=== PATIENT | female | born 1990 | race African-American/Black ===

== ENCOUNTER 2018-11-14 16:15 | Emergency (ER) | payer SELFPAY ==
[2018-11-14] MEDS ORDERED: METOCLOPRAMIDE 10 MG/2mL INJ ONE (17:35)
[2018-11-14] MEDS ORDERED: dexAMETHasone 10 MG/ML VIAL ONE (17:35)
[2018-11-14] MEDS ORDERED: KETOROLAC 30 MG/ML INJ ONE (17:35)
[2018-11-14] MEDS ORDERED: DIPHENHYDRAMINE 50 MG/ML VIAL ONE (17:35)
[2018-11-14] MEDS ORDERED: ONDANSETRON 4 MG/2 ML VIAL ONE (17:35)
[2018-11-14] MEDS ORDERED: NA CHLORIDE 0.9% 1,000 ML ONE (17:36)
[2018-11-14 18:09] LABS: Urine Blood NEGATIVE (NEG); Urine Glucose NEGATIVE (NEG); Urine Protein NEGATIVE (NEG)
[2018-11-14 18:19] LABS: Absolute Lymphocytes (CBC) 2.4 K/uL (0.7-4.9); Basophils % 0.7 % (0-1.3); Hematocrit 40.3 % (36.0-45.0); Lymphocytes % 27.2 % (15.3-44.8); MPV 8.5 fL (7.6-11.3); RBC Red Blood Cell Count 4.43 M/uL (3.86-4.86)
[2018-11-14] MEDS ORDERED: DIPHENHYDRAMINE 25 MG TAB/CAP ONE (18:27)
[2018-11-14 18:34] LABS: BUN Blood Urea Nitrogen 6 mg/dL (7-18); Bicarbonate 26 mmol/L (21-32); Glucose Level 78 mg/dL (74-106); Potassium 3.9 mmol/L (3.5-5.1); Sodium Level 142 mmol/L (136-145)
--- NOTE | 2018-11-14 19:47 | EDPHYS ---
Physician Documentation [facility] Name: Desirae Taylor Age: 28 yrs Sex: Female : 1990 Arrival Date: 11/14/2018 Time: 16:17 Bed 19 Private MD: ED Physician Kan Goetz HPI: 11/14 17:35 This 28 yrs old Black Female presents to ER via Ambulatory with complaints of Headache. cp 17:35 The patient complains of pain to the left base of the skull and right base of the cp skull. Onset: The symptoms/episode began/occurred this morning. 17:35 The patient describes the headache as aching. cp 17:35 Associated signs and symptoms: Pertinent negatives: altered mental status, dizziness, cp fever, neck stiffness, paresthesias, Photophobia sinus congestion, sinus tenderness, vision changes, vomiting. Severity of symptoms: in the emergency department the pain a " 8" out of "10". 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 - Social history:: Smoking status: Patient/guardian denies using tobacco. - Ebola Screening: : No symptoms or risks identified at this time. ROS: 17:40 Constitutional: Negative for body aches, chills, fever, poor PO intake. cp 17:40 Eyes: Negative for injury, pain, redness, and discharge. cp 17:40 ENT: Negative for drainage from ear(s), ear pain, sore throat, difficulty swallowing, difficulty handling secretions. 17:40 Neck: Negative for pain with movement, pain at rest, stiffness, tenderness. 17:40 Cardiovascular: Negative for chest pain. 17:40 Respiratory: Negative for cough, shortness of breath, wheezing. 17:40 Abdomen/GI: Negative for abdominal pain, nausea, vomiting, and diarrhea, constipation, black/tarry stool, rectal bleeding. 17:40 Back: Negative for pain at rest, pain with movement. 17:40 : Negative for urinary symptoms. 17:40 Neuro: Positive for headache, Negative for altered mental status, dizziness, numbness, weakness. 17:40 All other systems are negative. Exam: 17:50 Constitutional: The patient appears in no acute distress, alert, awake, non-toxic, well cp developed, well nourished. 17:50 Head/Face: Normocephalic, atraumatic. cp 17:50 Eyes: Periorbital structures: appear normal, Pupils: equal, round, and reactive to light and accomodation, Extraocular movements: intact throughout, Conjunctiva: normal, no exudate, no injection, Sclera: no appreciated abnormality, Lids and lashes: appear normal. 17:50 ENT: External ear(s): are unremarkable, Ear canal(s): are normal, clear, TM's: bulging, is not appreciated, bilaterally, dullness, bilaterally, erythema, is not appreciated, bilaterally, Nose: is normal, Mouth: Lips: moist, Oral mucosa: pink and intact, moist, Posterior pharynx: is normal, airway is patent. 17:50 Neck: ROM/movement: is normal, is supple, without pain, no range of motions limitations, no meningismus, no nuchal rigidity. 17:50 Chest/axilla: Inspection: normal, Palpation: is normal, no crepitus, no tenderness. 17:50 Cardiovascular: Rate: normal, Rhythm: regular. 17:50 Respiratory: the patient does not display signs of respiratory distress, Respirations: normal, no use of accessory muscles, no retractions, no splinting, no tachypnea, labored breathing, is not present. 17:50 Abdomen/GI: Inspection: abdomen appears normal, Palpation: abdomen is soft and non-tender, in all quadrants. 17:50 Skin: no rash present. 17:50 Neuro: Orientation: to person, place \\T\\ time. Mentation: is normal, Cerebellar function: is grossly normal, Motor: moves all fours, strength is normal, Sensation: is normal. Vital Signs: 16:42 BP 131 / 72; Pulse 76; Resp 16; Temp 98.4; Pulse Ox 100% on R/A; Weight 116.57 kg; hb Height 5 ft. 4 in. (162.56 cm); Pain 8/10; 19:15 BP 119 / 88; Pulse 74; Resp 17; Temp 98.8; Pulse Ox 100% on R/A; Pain 1/10; rr5 20:00 BP 120 / 88; Pulse 70; Resp 17; Pulse Ox 99% on R/A; rr5 16:42 Body Mass Index 44.11 (116.57 kg, 162.56 cm) hb MDM: 16:52 Patient medically screened. cp 18:00 Differential diagnosis: meningitis, migraine, sinusitis, tension headache. cp 19:45 Data reviewed: vital signs, nurses notes, and as a result, I will discharge patient. cp 19:45 Counseling: I had a detailed discussion with the patient and/or guardian regarding: the cp historical points, exam findings, and any diagnostic results supporting the discharge/admit diagnosis, to return to the emergency department if symptoms worsen or persist or if there are any questions or concerns that arise at home. Response to treatment: the patient's symptoms have markedly improved after treatment, VSS. Patient reports headache markedly improved. 11/14 17:33 Order name: CBC with Diff cp 11/14 17:33 Order name: BMP cp 11/14 18:01 Order name: Urine Dipstick--Ancillary (enter results) eb 11/14 18:01 Order name: Urine --Ancillary (enter results) eb 11/14 17:31 Order name: Urine Dipstick-Ancillary (obtain specimen); Complete Time: 18:09 cp 11/14 17:31 Order name: Urine Test (obtain specimen); Complete Time: 18:09 cp Administered Medications: 18:29 Not Given (Other Intervention Used): TORadol - Ketorolac 15 mg IVP once em 18:29 Not Given (Physician Discretion): NS 0.9% 1000 ml IV at 1 bolus Per protocol; 1000 mL em bolus 18:29 Not Given (Other Intervention Used): Benadryl 25 mg IVP once em 18:30 Not Given (Other Intervention Used): Decadron - Dexamethasone 10 mg IVP once em 18:30 Not Given (Patient Refused): Zofran 4 mg IVP once; over 2 minutes em 18:30 Not Given (Other Intervention Used): Reglan 10 mg IVP once; over 1 to 2 minutes em 18:31 Drug: Benadryl 25 mg Route: PO; em 19:35 Follow up: Response: No adverse reaction rr5 18:31 Drug: Ketorolac 15 mg Route: IM; Site: left gluteus; em 19:35 Follow up: Response: No adverse reaction rr5 18:32 Drug: Decadron 10 mg Route: IM; Site: left gluteus; em 19:35 Follow up: Response: No adverse reaction rr5 18:32 Drug: Reglan 10 mg Route: IM; Site: left gluteus; em 19:30 Follow up: Response: No adverse reaction rr5 Disposition: 11/14/18 19:46 Discharged to Home. Impression: Headache. - Condition is Stable. - Discharge Instructions: General Headache Without Cause. - Prescriptions for Ibuprofen 800 mg Oral Tablet - take 1 tablet by ORAL route every 8 hours As needed take with food; 30 tablet. - Medication Reconciliation Form, Thank You Letter, Antibiotic Education, Prescription Opioid Use, Work release form form. - Follow up: Private Physician; When: 2 - 3 days; Reason: Recheck today's complaints. - Problem is new. - Symptoms have improved. Addendum: 11/17/2018 09:06 Co-signature as Attending Physician, Kan Goetz MD I agree with the assessment and k dr plan of care. Signatures: Dispatcher [employer] EDNE Kan Goetz MD MD [facility] Chris Ambrose, CURRICULUM CONSULTANT CURRICULUM CONSULTANT em John Delatorre PA PA cp Fiordaliza Cordova RN RN Augustine Up RN RN rr5 Corrections: (The following items were deleted from the chart) 11/14 18:51 17:31 IV Saline Lock ordered. cp em 20:02 19:46 11/14/2018 19:46 Discharged to Home. Impression: Headache. Condition is Stable. rr5 Forms are Medication Reconciliation Form, Thank You Letter, Antibiotic Education, Prescription Opioid Use. Follow up: Private Physician; When: 2 - 3 days; Reason: Recheck today's complaints. Problem is new. Symptoms have improved. cp
--- NOTE | 2018-11-14 19:47 | ER ---
Nurse's Notes [facility] Name: Desirae Taylor Age: 28 yrs Sex: Female : 1990 Arrival Date: 11/14/2018 Time: 16:17 Bed 19 Private MD: Diagnosis: Headache Presentation: 11/14 16:40 Presenting complaint: Posterior headache since this morning. Denies hb photosensitivity/N/V/fever/headaceh hx. Transition of care: patient was not received from another setting of care. Onset of symptoms was November 14, 2018. Risk Assessment: Do you want to hurt yourself or someone else? Patient reports no desire to harm self or others. Care prior to arrival: Medication(s) given: BC Powder at 0700, Aleve at 1100, Motrin at 1300. 16:40 Method Of Arrival: Ambulatory hb 16:40 Acuity: LIZ 3 hb 16:40 Initial Sepsis Screen: Does the patient meet any 2 criteria? No. Patient's initial hb sepsis screen is negative. Does the patient have a suspected source of infection? No. Patient's initial sepsis screen is negative. 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 - Social history:: Smoking status: Patient/guardian denies using tobacco. - Ebola Screening: : No symptoms or risks identified at this time. Screenin:55 Abuse screen: Denies threats or abuse. Nutritional screening: No deficits noted. em Tuberculosis screening: No symptoms or risk factors identified. Fall Risk None identified. Assessment: 16:55 General: Appears in no apparent distress. comfortable, Behavior is calm, cooperative. em Pain: Complains of pain in occipital area Pain currently is 8 out of 10 on a pain scale. Pain began this morning. Neuro: Level of Consciousness is awake, alert, obeys commands, Oriented to person, place, time, situation, Reports headache occipital area, Denies weakness blurred vision dizziness, photophobia. Cardiovascular: Capillary refill < 3 seconds Patient's skin is warm and dry. Respiratory: Airway is patent Respiratory effort is even, unlabored, Respiratory pattern is regular, symmetrical. GI: Patient currently denies nausea, vomiting. Derm: Skin is intact, is healthy with good turgor, Skin is dry, Skin is normal, Skin temperature is warm. Musculoskeletal: Capillary refill < 3 seconds, Range of motion: intact in all extremities. 16:55 Reassessment: I agree with assessment completed by Chris Ambrose LVN . aa5 16:55 Neuro: Switch House Operator are equal bilaterally Moves all extremities. Speech is normal, Facial aa5 symmetry appears normal, Pupils are PERRLA. 18:20 Reassessment: Patient appears in no apparent distress at this time. unsuccessful IV em insertion, pt reports she would not like to get stunk anymore, request pill for pain, provider notified, changed medications to IM, pt agrees to IM medication. 19:10 General: Appears in no apparent distress. comfortable, Behavior is calm, cooperative, rr5 appropriate for age. Pain: Complains of pain in head Pain does not radiate. Pain currently is 1 out of 10 on a pain scale. Quality of pain is described as aching, Pain began gradually. Neuro: Level of Consciousness is awake, alert, obeys commands, Oriented to person, place, time, situation, Appropriate for age Reports headache occipital area. Cardiovascular: Capillary refill < 3 seconds Patient's skin is warm and dry. Respiratory: Airway is patent Respiratory effort is even, unlabored, Respiratory pattern is regular, symmetrical. GI: No signs and/or symptoms were reported involving the gastrointestinal system. : EENT: No signs and/or symptoms were reported regarding the EENT system. Derm: Skin is intact, is healthy with good turgor, Skin temperature is warm. Musculoskeletal: Circulation, motion, and sensation intact. Capillary refill < 3 seconds. 20:00 Reassessment: Patient appears in no apparent distress at this time. Patient is alert, rr5 oriented x 3, equal unlabored respirations, skin warm/dry/pink. discharge instruction given and explained without complaints made. Patient states feeling better. Patient states symptoms have improved. Vital Signs: 16:42 BP 131 / 72; Pulse 76; Resp 16; Temp 98.4; Pulse Ox 100% on R/A; Weight 116.57 kg; hb Height 5 ft. 4 in. (162.56 cm); Pain 8/10; 19:15 BP 119 / 88; Pulse 74; Resp 17; Temp 98.8; Pulse Ox 100% on R/A; Pain 1/10; rr5 20:00 BP 120 / 88; Pulse 70; Resp 17; Pulse Ox 99% on R/A; rr5 16:42 Body Mass Index 44.11 (116.57 kg, 162.56 cm) hb ED Course: 16:17 Patient arrived in ED. as 16:41 Triage completed. hb 16:42 Arm band placed on. hb 16:52 John Delatorre PA is PHCP. cp 16:52 Kan Goetz MD is Attending Physician. cp 16:55 Patient has correct armband on for positive identification. Placed in gown. Bed in low em position. Adult w/ patient. Pulse ox on. NIBP on. 17:04 Chris Ambrose LVN is Primary Nurse. em 20:00 No provider procedures requiring assistance completed. Patient did not have IV access rr5 during this emergency room visit. Administered Medications: 18:29 Not Given (Other Intervention Used): TORadol - Ketorolac 15 mg IVP once em 18:29 Not Given (Physician Discretion): NS 0.9% 1000 ml IV at 1 bolus Per protocol; 1000 mL em bolus 18:29 Not Given (Other Intervention Used): Benadryl 25 mg IVP once em 18:30 Not Given (Other Intervention Used): Decadron - Dexamethasone 10 mg IVP once em 18:30 Not Given (Patient Refused): Zofran 4 mg IVP once; over 2 minutes em 18:30 Not Given (Other Intervention Used): Reglan 10 mg IVP once; over 1 to 2 minutes em 18:31 Drug: Benadryl 25 mg Route: PO; em 19:35 Follow up: Response: No adverse reaction rr5 18:31 Drug: Ketorolac 15 mg Route: IM; Site: left gluteus; em 19:35 Follow up: Response: No adverse reaction rr5 18:32 Drug: Decadron 10 mg Route: IM; Site: left gluteus; em 19:35 Follow up: Response: No adverse reaction rr5 18:32 Drug: Reglan 10 mg Route: IM; Site: left gluteus; em 19:30 Follow up: Response: No adverse reaction rr5 Outcome: 19:46 Discharge ordered by . cp 20:00 Discharged to home ambulatory. rr5 20:00 Condition: stable 20:00 Discharge instructions given to patient, Instructed on discharge instructions, follow up and referral plans. medication usage, Demonstrated understanding of instructions, follow-up care, medications, Prescriptions given X 1. 20:02 Patient left the ED. rr5 Signatures: Chris Ambrose, STRAINER CLEANER STRAINER CLEANER em Yolette Campbell Audri, RN RN aa5 John Delatorre PA PA Fiordaliza Avila RN RN Augustine Up RN RN rr5 Corrections: (The following items were deleted from the chart) 16:42 16:40 Presenting complaint: Posterior headache since this morning. Denies hb photosensitivity/N/V/fever hb 19:19 16:55 Derm: Skin is intact, is healthy with good turgor, Skin is pink, warm \T\ dry. em aa5
== END 2018-11-14 20:02 | disposition home or self-care (01) ==
LOC: ER 16:15
DX: R51 Headache (principal)
CPT/HCPCS: 36415; 80048; 81003; 81025; 85025; 96372; 99283; J1100; J2405; J2765; J7030

== ENCOUNTER 2019-08-26 17:32 | Emergency (ER) | payer SELFPAY ==
--- OUTSIDE RECORDS SUMMARY | 2019-08-26 17:34 | XMS REPORT ---
:1990 Author Organization [facility] t Address [address] [place] [address] Dr. Honeycutt [address] [place] [id number] Care Team Providers Name Role Phone Unavailable Unavailable Unavailable Problems This patient has no known problems. Allergies, Adverse Reactions, Alerts This patient has no known allergies or adverse reactions. Medications This patient has no known medications. Procedures This patient has no known procedures. Results This patient has no known results.
[2019-08-26] MEDS ORDERED: HYDROCODONE/APAP 5/325 MG TAB ONE (19:01)
[2019-08-26] MEDS ORDERED: DIAZEPAM 2 MG TABLET ONE (19:01)
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
[2019-08-26 20:59] VITALS: BP 148/84; TEMP 99.2; O2SAT 100
== END 2019-08-26 19:47 | disposition home or self-care (01) ==
LOC: ER 17:32
DX: S63.8X1A Sprain of other part of right wrist and hand, initial encounter (principal); M54.5 Low back pain; V43.53XA Car driver injured in collision with pick-up truck in traffic accident, initial encounter; E78.5 Hyperlipidemia, unspecified; Z91.018 Allergy to other foods
CPT/HCPCS: 71046; 99283

== ENCOUNTER 2023-08-13 16:29 | Emergency (ER) | payer OTHER ==
[2023-08-13 17:42] LABS: Specific Gravity 1.009 (1.005-1.030); Urine Bilirubin NEGATIVE (Negative); Urine Blood Negative (Negative); Urine Clarity Clear (Clear); Urine Color Colorless (Yellow); Urine Glucose NEGATIVE (Negative); Urine Ketones NEGATIVE (Negative); Urine Microscopic Reflex YN NO UMIC; Urine Nitrite NEGATIVE (Negative); Urine Protein NEGATIVE (Negative); Urine Urobilinogen Normal (Normal); Urine pH 6.5 (5.0-7.0)
[2023-08-13 18:00] LABS: Barbiturates NEGATIVE (NEGATIVE); Benzodiazepines NEGATIVE (NEGATIVE); Cocaine NEGATIVE (NEGATIVE); METHAMPHETAM NEGATIVE (NEGATIVE); Methadone NEGATIVE (NEGATIVE); Opiates NEGATIVE (NEGATIVE); Phencyclidine NEGATIVE (NEGATIVE); THC Cannibis NEGATIVE (NEGATIVE)
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
--- NOTE | 2023-08-13 19:25 | EDPHYS ---
Physician Documentation [facility] Name: Desirae Taylor Age: 33 yrs Sex: Female : 1990 Arrival Date: 08/13/2023 Time: 16:29 Bed 15 Private MD: ED Physician John Willard HPI: 08/12 17:48 This 33 yrs old Black Female presents to ER via Ambulatory with complaints of Chest cp Pain. 17:48 The patient or guardian reports chest pain that is located primarily in the anterior cp chest wall, bilaterally. The pain does not radiate. Associated signs and symptoms: Pertinent negatives: abdominal pain, cough, diaphoresis, dizziness, headache, lower extremity pain, lower extremity swelling, lightheadedness, near syncope, shortness of breath, syncope, vomiting, fever. 17:48 The chest pain is described as sharp. cp 17:48 Duration: The patient or guardian reports multiple episodes, that are intermittent, cp started 3 days ago. 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 - Infectious Disease History:: Denies. - Social history:: Smoking status: Patient denies any tobacco usage or history of. ROS: 17:50 Constitutional: Negative for body aches, chills, fever, poor PO intake, cp 17:50 Eyes: Negative for injury, pain, redness, and discharge, cp 17:50 ENT: Negative for drainage from ear(s), ear pain, sore throat, difficulty swallowing, difficulty handling secretions, 17:50 Cardiovascular: Positive for chest pain, Negative for edema, palpitations, 17:50 Respiratory: Negative for cough, shortness of breath, wheezing, 17:50 Abdomen/GI: Negative for nausea and vomiting, diarrhea, constipation, 17:50 Back: Negative for pain at rest, pain with movement, radiated pain, 17:50 : Negative for urinary symptoms, 17:50 Neuro: Negative for altered mental status, headache, numbness, syncope, near syncope, weakness, 17:50 All other systems are negative, Exam: 17:55 Constitutional: The patient appears in no acute distress, alert, awake, cp non-diaphoretic, non-toxic, well developed, well nourished, obese, 17:55 Head/Face: Normocephalic, atraumatic. cp 17:55 Eyes: Periorbital structures: appear normal, Conjunctiva: normal, no exudate, no injection, Sclera: no appreciated abnormality, Lids and lashes: appear normal, bilaterally, 17:55 ENT: External ear(s): are unremarkable, Nose: is normal, Mouth: Lips: moist, Oral mucosa: pink and intact, moist, Posterior pharynx: Airway: no evidence of obstruction, patent, 17:55 Chest/axilla: Inspection: normal, 17:55 Cardiovascular: Rate: normal, Rhythm: regular, Heart sounds: murmur, not appreciated, Edema: is not appreciated, JVD: is not appreciated, 17:55 Respiratory: the patient does not display signs of respiratory distress, Respirations: normal, no use of accessory muscles, no retractions, labored breathing, is not present, Breath sounds: are clear throughout, no decreased breath sounds, no stridor, no wheezing, 17:55 Abdomen/GI: Inspection: abdomen appears normal, Palpation: abdomen is soft and non-tender, in all quadrants, 17:55 Back: pain, is absent, ROM is normal, 17:55 Skin: no rash present. 17:55 Neuro: Orientation: to person, place \T\ time. Mentation: is normal, Motor: moves all fours, strength is normal, Sensation: is normal, Vital Signs: 16:35 Pulse 92; Resp 18 S; Temp 98.2(TE); Pulse Ox 100% on R/A; Weight 127.01 kg (R); Height as6 5 ft. 4 in. (R); Pain 6/10; 16:36 BP 139 / 103; as6 18:00 BP 117 / 85; Pulse 79; Resp 16; Pulse Ox 100% ; bp 19:00 BP 120 / 81; Pulse 68; Resp 16 S; Pulse Ox 100% on R/A; jw7 16:35 Body Mass Index 48.06 (127.01 kg, 162.56 cm) as6 16:35 Pain Scale: Adult as6 MDM: 16:39 Patient medically screened. cp 18:00 Differential diagnosis: acute myocardial infarction, acute pericarditis, anxiety, chest cp wall pain, cholecystitis, Cholelithiasis costochondritis, myocarditis, pancreatitis, pleurisy, pneumonia, pneumothorax, pulmonary embolus. 19:24 Data reviewed: vital signs, nurses notes, EKG, radiologic studies, plain films. Refusal cp of service: The patient/guardian displays adequate decision making capability and despite a detailed discussion of alternatives, benefits, risks, and consequences refuses: all lab tests. 08/12 16:41 Order name: Test, Urine; Complete Time: 18:21 cp 08/12 16:41 Order name: UDS; Complete Time: 18:21 cp 08/12 16:42 Order name: Urinalysis w/ reflexes; Complete Time: 18:21 cp 08/12 17:20 Order name: XRAY Chest (1 view); Complete Time: 18:21 cp 08/12 16:41 Order name: EKG; Complete Time: 16:42 cp 08/12 16:41 Order name: EKG - Nurse/Tech; Complete Time: 16:48 cp 08/12 17:20 Order name: Cardiac monitoring; Complete Time: 17:41 cp 08/12 17:20 Order name: O2 Per Protocol; Complete Time: 17:41 cp 08/12 17:20 Order name: O2 Sat Monitoring; Complete Time: 17:41 cp Administered Medications: No medications were administered Disposition: 22:14 Co-signature as Attending Physician, John Willard MD I agree with the assessment and ben plan of care. Disposition Summary: 08/13/23 19:24 Discharge Ordered Notes: Location: Home cp Problem: new cp Symptoms: have improved cp Condition: Stable cp Diagnosis - Chest pain, unspecified cp Followup: cp - With: Private Physician - When: 1 - 2 days - Reason: Recheck today's complaints Discharge Instructions: - Discharge Summary Sheet cp - Nonspecific Chest Pain, Adult cp - Aspirin and Your Heart cp Forms: - Medication Reconciliation Form cp - Antibiotic Education cp - Prescription Opioid Use cp - Patient Portal Instructions cp - Leadership Thank You Letter cp Signatures: Dispatcher [employer] John Tobar MD MD cha Page, Corey, PA PA cp Christian Joyce RN RN as6 Corrections: (The following items were deleted from the chart) 19:34 17:20 IV Saline Lock ordered. cp jw7 19:34 17:20 Labs collected and sent ordered. cp jw7
--- NOTE | 2023-08-13 19:25 | ER ---
Nurse's Notes [facility] Name: Desirae Taylor Age: 33 yrs Sex: Female : 1990 Arrival Date: 08/13/2023 Time: 16:29 Bed 15 Private MD: Diagnosis: Chest pain, unspecified Presentation: 08/12 16:37 Chief complaint: Patient states: chest pain for the past several days. Coronavirus as6 screen: At this time, the client does not indicate any symptoms associated with coronavirus-19. Ebola Screen: No symptoms or risks identified at this time. Initial Sepsis Screen: Does the patient meet any 2 criteria? No. Patient's initial sepsis screen is negative. Does the patient have a suspected source of infection? No. Patient's initial sepsis screen is negative. Risk Assessment: Do you want to hurt yourself or someone else? Patient reports no desire to harm self or others. Onset of symptoms was August 10, 2023. 16:37 Acuity: LIZ 3 as6 16:37 Method Of Arrival: Ambulatory as6 Triage Assessment: 16:45 General: Appears in no apparent distress. Behavior is calm, cooperative, appropriate bp for age. Pain: Complains of pain in chest. EENT: No deficits noted. Cardiovascular: Rhythm is sinus rhythm. 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 - Infectious Disease History:: Denies. - Social history:: Smoking status: Patient denies any tobacco usage or history of. Screenin:45 [facility] ED Fall Risk Assessment (Adult) History of falling in the last 3 months, bp including since admission No falls in past 3 months (0 pts). Abuse screen: Denies threats or abuse. Denies injuries from another. Nutritional screening: No deficits noted. Tuberculosis screening: No symptoms or risk factors identified. Assessment: 16:45 General: SEE TRIAGE NOTE. Pain: Pain does not radiate. Pain began 1 day ago. bp Cardiovascular: Reports chest pain, Rhythm is sinus rhythm. Respiratory: Airway is patent Respiratory effort is even, unlabored. 18:00 Reassessment: PT REFUSING PIV AND LAB DRAW. PROVIDER INFORMED. bp 19:00 General: Appears in no apparent distress. comfortable, Behavior is calm, cooperative. jw7 Pain: Denies pain. Neuro: Level of Consciousness is awake, alert, obeys commands, Oriented to person, place, time, situation. 19:00 Cardiovascular: Heart tones S1 S2 present Capillary refill < 3 seconds Clubbing of nail jw7 beds is absent JVD is absent Patient's skin is warm and dry. Rhythm is sinus rhythm. Respiratory: Airway is patent Trachea midline Respiratory effort is even, unlabored, Respiratory pattern is regular, symmetrical, Breath sounds are clear bilaterally. GI: Abdomen is round non-distended, Bowel sounds present X 4 quads. Abd is soft and non tender X 4 quads. : No deficits noted. No signs and/or symptoms were reported regarding the genitourinary system. EENT: No deficits noted. No signs and/or symptoms were reported regarding the EENT system. Derm: Skin is intact, is healthy with good turgor, Skin is dry, Skin is normal, Skin temperature is warm. Musculoskeletal: Circulation, motion, and sensation intact. Range of motion: intact in all extremities. Vital Signs: 16:35 Pulse 92; Resp 18 S; Temp 98.2(TE); Pulse Ox 100% on R/A; Weight 127.01 kg (R); Height as6 5 ft. 4 in. (R); Pain 6/10; 16:36 BP 139 / 103; as6 18:00 BP 117 / 85; Pulse 79; Resp 16; Pulse Ox 100% ; bp 19:00 BP 120 / 81; Pulse 68; Resp 16 S; Pulse Ox 100% on R/A; jw7 16:35 Body Mass Index 48.06 (127.01 kg, 162.56 cm) as6 16:35 Pain Scale: Adult as6 ED Course: 16:32 Patient arrived in ED. mg5 16:34 John Delatorre PA is PHCP. cp 16:34 John Willard MD is Attending Physician. cp 16:36 Arm band placed on right wrist. as6 16:37 Triage completed. as6 16:45 Patient has correct armband on for positive identification. Provided Education on: N/A. bp Client placed on continuous cardiac and pulse oximetry monitoring. NIBP monitoring applied. platform stapler on. Pulse ox on. NIBP on. 16:45 No provider procedures requiring assistance completed. EKG done, by ED staff, reviewed bp by John ESPINOZA. 16:53 Derrell Mackey, RN is Primary Nurse. bp 17:40 Test, Urine Sent. bp 17:40 UDS Sent. bp 17:41 Urinalysis w/ reflexes Sent. bp 17:55 XRAY Chest (1 view) In Process Unspecified. EDMS 19:00 O2 via RA. jw7 19:36 Patient did not have IV access during this emergency room visit. jw7 Administered Medications: No medications were administered Medication: 19:37 VIS not applicable for this client. jw7 Outcome: 19:24 Discharge ordered by . amber 19:36 Discharged to home ambulatory, jwJuan 19:36 Condition: stable 19:36 Discharge instructions given to patient, Instructed on discharge instructions, follow up and referral plans. Demonstrated understanding of instructions, follow-up care, 19:37 Patient left the ED. jw7 Signatures: Dispatcher [employer] EDWI John Delatorre PA PA cp Peltier, Brian, RN RN Christian Wooten, RN RN as6 Danae George, RN RN jw7 Odalys Fernandez [facility]
[2023-08-13 20:04] VITALS: BP 120/81; TEMP 98.2; O2SAT 100
--- NOTE | 2023-08-14 13:09 | EKG ---
Test Date: 2023-08-13 Test Time: 16:43:43 [address]: MEASUREMENT RESULTS: Intervals: Rate: 74 DC: 152 QRSD: 78 QT: 360 QTc: 399 [place]: P: 48 DC: 152 QRS: 47 T: 8 INTERPRETIVE STATEMENTS: Normal sinus rhythm Nonspecific T wave abnormality Abnormal ECG No previous ECG available for comparison Electronically Signed On 08-14-23 13:05:58 CDT by Mario Alberto Berry
== END 2023-08-13 19:37 | disposition home or self-care (01) ==
LOC: ER 16:29
DX: R07.89 Other chest pain (principal); I10 Essential (primary) hypertension; Z91.018 Allergy to other foods
CPT/HCPCS: 71045; 80307; 81003; 81025; 93005; 99285